=== PATIENT | male | born 1945 | race Caucasian/White ===

== ENCOUNTER 2020-01-22 07:43 | Emergency (ER) | payer MEDICARE, OTHER ==
[~2020-01-22] VITALS: Ht 180.3 cm; Wt 125.0 kg
[2020-01-22 07:49] VITALS: BP 168/93
[2020-01-22] MEDS ORDERED: TETanus/Pertussis (Acell)/Diphther VAC/PF (Tdap-Adult) 0.5ml syringe IMVAC ONE (08:00)
[2020-01-22] MEDS ORDERED: CELE-193 PO ×2 (08:39→14:16)
== END 2020-01-22 08:47 | disposition home or self-care (01) ==
LOC: ER 07:43
DX: S80.812A Abrasion, left lower leg, initial encounter (principal); S80.811A Abrasion, right lower leg, initial encounter; S60.511A Abrasion of right hand, initial encounter; M25.561 Pain in right knee; E78.00 Pure hypercholesterolemia, unspecified; I10 Essential (primary) hypertension; K21.9 Gastro-esophageal reflux disease without esophagitis; M19.90 Unspecified osteoarthritis, unspecified site; Z98.890 Other specified postprocedural states; Z88.1 Allergy status to other antibiotic agents; Z79.899 Other long term (current) drug therapy; W50.2XXA Accidental twist by another person, initial encounter; Y93.89 Activity, other specified; Y92.89 Other specified places as the place of occurrence of the external cause; Y99.8 Other external cause status
CPT/HCPCS: 73564; 90471; 90715; 99284

== ENCOUNTER 2023-07-17 06:45 | Emergency (ER) | payer MEDICARE, OTHER ==
[~2023-07-17] VITALS: Ht 180.3 cm; Wt 127.3 kg
[2023-07-17 08:34] VITALS: BP 152/76; PULSE 70; TEMP 98.3; O2SAT 95
[2023-07-17 08:37] VITALS: RESP 16
[2023-07-17 08:59] LABS: BASOPHILS % (AUTO) 0.5 % (0-1); EOSINOPHILS # (AUTO) 0.2 X10'3 (0-0.9); HEMATOCRIT 43.8 % (42.0-52.0); LYMPHOCYTES % (AUTO) 12.6 % (21-51); MEAN CORPUSCULAR HEMOGLOBIN 26.4 PG (27.0-31.0); MEAN CORPUSCULAR HGB CONC 31.9 g/dL (33.0-36.5); MEAN CORPUSCULAR VOLUME 82.7 FL (78-98); MEAN PLATELET VOLUME 6.5 FL (7.4-10.4); MONOCYTES # (AUTO) 0.8 X10'3 (0-0.9); MONOCYTES % (AUTO) 9.9 % (2-12); NEUTROPHILS # (AUTO) 5.9 X10'3 (1.8-7.7); PLATELET COUNT 295 X10'3 (140-440); RED CELL DISTRIBUTION WIDTH 17.5 % (11.5-14.5); WHITE BLOOD COUNT 7.8 X10'3 (4.5-11.0)
[2023-07-17 09:18] LABS: ALANINE AMINOTRANSFERASE 30 U/L (12-78); ALBUMIN 3.9 G/DL (3.4-5.0); ALBUMIN/GLOBULIN RATIO 1.1 (1.1-1.5); ALKALINE PHOSPHATASE 82 IU/L (46-116); ANION GAP 9 (8-16); ASPARTATE AMINO TRANSFERASE 22 U/L (10-37); BILIRUBIN,TOTAL 0.4 MG/DL (0.1-1.0); BLOOD UREA NITROGEN 24 MG/DL (7-18); BUN/CREATININE RATIO 18.8 (10.0-20.0); CALCIUM 9.3 MG/DL (8.5-10.1); CHLORIDE 100 MMOL/L (99-107); CREATININE 1.28 MG/DL (0.60-1.10); GLUCOSE 106 MG/DL (70-104); POTASSIUM 4.9 MMOL/L (3.5-5.1); SODIUM 134 MMOL/L (135-145); TOTAL CARBON DIOXIDE 25.1 MMOL/L (24-32); TOTAL PROTEIN 7.4 G/DL (6.4-8.2); eCRCL 52 ML/MIN; eGFR 55 ML/MIN
== END 2023-07-17 10:08 | disposition home or self-care (01) ==
LOC: ER 06:46
DX: M71.22 Synovial cyst of popliteal space [Baker], left knee (principal); I10 Essential (primary) hypertension; E78.00 Pure hypercholesterolemia, unspecified; K21.9 Gastro-esophageal reflux disease without esophagitis; E03.9 Hypothyroidism, unspecified; Z88.1 Allergy status to other antibiotic agents
CPT/HCPCS: 36415; 80053; 85025; 93971; 99284

== ENCOUNTER 2023-11-14 14:53 | Emergency (ER) | payer MEDICARE, OTHER ==
[~2023-11-14] VITALS: Ht 182.9 cm; Wt 131.5 kg
[2023-11-14 14:58] VITALS: BP 155/73; PULSE 94; TEMP 97.7; O2SAT 95
[2023-11-14] MEDS ORDERED: PRED20TA PO (15:57)
[2023-11-14 16:14] VITALS: RESP 18
[2023-11-14] MEDS: ketorolac trometh inj. 60 MG/2 ML VIAL IM ONE (16:14)
== END 2023-11-14 16:52 | disposition home or self-care (01) ==
LOC: ER 14:54
DX: M79.671 Pain in right foot (principal); E78.00 Pure hypercholesterolemia, unspecified; I10 Essential (primary) hypertension; K21.9 Gastro-esophageal reflux disease without esophagitis; M19.90 Unspecified osteoarthritis, unspecified site; Z88.1 Allergy status to other antibiotic agents
CPT/HCPCS: 73610; 73630; 96372; 99284; J1885

== ENCOUNTER 2024-05-22 08:37 | Emergency (ER) | payer MEDICARE, OTHER ==
[~2024-05-22] VITALS: Ht 180.3 cm; Wt 127.0 kg
[2024-05-22 08:43] VITALS: TEMP 98.8
[2024-05-22] MEDS ORDERED: PRED20TA PO (10:06)
[2024-05-22] MEDS ORDERED: MELO-100 PO (10:06)
[2024-05-22] MEDS: ketorolac trometh 15mg/ml vial 15 MG/ML ML IM ONE (10:15)
[2024-05-22 10:21] VITALS: BP 142/68; PULSE 66; RESP 17; O2SAT 95
== END 2024-05-22 10:25 | disposition home or self-care (01) ==
LOC: ER 08:38
DX: M25.551 Pain in right hip (principal); M16.11 Unilateral primary osteoarthritis, right hip; E78.00 Pure hypercholesterolemia, unspecified; I10 Essential (primary) hypertension; K21.9 Gastro-esophageal reflux disease without esophagitis; Z88.1 Allergy status to other antibiotic agents; Z79.2 Long term (current) use of antibiotics; Z79.899 Other long term (current) drug therapy
CPT/HCPCS: 73502; 96372; 99283; J1885